=== PATIENT | female | born 1965 | race Caucasian/White ===

== ENCOUNTER → 2017-12-10 18:36 | Outpatient (CLI) | payer OTHER, SELFPAY ==
[2017-12-10 18:59] LABS: Absolute Lymphocyte Count 1.42 X10^3/ul (0.83-4.51); Absolute Neutrophil Count 1.9 X10^3/uL (2.0-7.7); Basophil# 0.04 X10^3/uL; Basophil% 1.1 % (0-1); Eosinophil# 0.08 X10^3/uL; Eosinophils% 2.1 % (0-5); Hematocrit 40.3 % (37-47); Hemoglobin 13.2 g/dl (12.0-15.0); Lymphocyte # 1.42 X10^3/ul (4.0); Mean Corp Hgb Conc 32.8 g/gl (32-36); Mean Corpuscular Hgb 29.3 pg (27.0-32.0); Mean Corpuscular Volume 89.6 fL (81-99); Mean Platelet Vol. 11.8 fl (6.2-12.0); Monocyte# 0.34 X10^3/uL; Monocyte% 9.1 % (0-10); Neutrophil # 1.86 X10^3/uL (2.7-7.7); Neutrophil % 49.7 % (47-70); POSITIVE COUNT NO; POSITIVE DIFFERENTIAL NO; POSITIVE MORPHOLOGY NO; Platelet Count 331 K/mm3 (150-450); RBC Distribution Width SD 45.8 fl (35.1-43.9); White Blood Count 3.7 K/mm3 (4.4-11.0)
[2017-12-10 19:14] LABS: ALB/GLOB Ratio 0.9 RATIO (0.9-2.4); AST(SGOT) 15 U/L (15-37); Alanine Aminotransfer ALT/SGPT 19 U/L (13-56); Albumin, Serum 3.7 g/dL (3.2-5.0); Alkaline Phosphatase 55 U/L (45-117); Anion Gap 4 (5-15); BUN 17 mg/dL (7-18); Calcium,Total 8.5 mg/dL (8.5-10.1); Chloride 103 mmol/L (98-107); Cholesterol 224 mg/dL (200); EST Glomerular Filtration Rate 62 mL/min (>60); Est Glom Filt Rate - Afr Amer 75 mL/min (>60); Globulin 4.2 g/dL (2.2-4.2); Glucose 85 mg/dL (74-106); High Density Lipoprotein 79 mg/dL; Potassium 4.1 mmol/L (3.5-5.1); Protein, Total 7.9 g/dL (6.4-8.2); Sodium Level 138 mmol/L (136-145); Triglycerides 65 mg/dL; Very Low Density Lipoprotein 13 mg/dL (5-40)
== END ==
PROVIDERS: Visit Provider Nurse Practitioner
DX: K76.89 Other specified diseases of liver (principal)
CPT/HCPCS: 80053; 80061; 85025

== ENCOUNTER → 2019-02-07 08:38 | Outpatient (CLI) | payer OTHER, SELFPAY ==
[2017-12-10 11:13] VITALS: BMI 22.6
--- NOTE | 2019-02-07 08:49 | RAD_ITS ---
HISTORY: kidney calculus ADDITIONAL HISTORY: None. COMPARISON: None Technique: Supine abdominal radiograph Number of images including paperwork: 1 FINDINGS: FREE AIR: None detected. BOWEL GAS PATTERN: Nonobstructive. CALCIFICATIONS: No definite urinary tract calculi, overlying bowel gas somewhat limiting evaluation. Pelvic calcifications are suggestive of phleboliths. ORGANS: No evidence of organomegaly. SOFT TISSUES: Unremarkable. BONES: No acute skeletal findings. RAD/Abdomen Single View IMPRESSION: No acute abdominal abnormality is radiographically apparent. at 2226 Reported and signed by: Neda Chang MD Electronically Signed: Neda Chang MD at 22:26 EDT Tel , Service support ,
== END ==
PROVIDERS: Family Provider Nurse Practitioner; PCP Nurse Practitioner; Referring Provider Urology; Visit Provider Urology
DX: N20.0 Calculus of kidney (principal)
CPT/HCPCS: 74018